=== PATIENT | female | born 1950 | race African-American/Black ===

== ENCOUNTER 2018-12-17 09:49 | Emergency (ER) | payer BC ==
--- NOTE | 2018-12-17 10:53 | ER Document Report ---
ED Medical Screen (RME) - General Chief Complaint: Leg Pain Stated Complaint: LEG PAIN Time Seen by Provider: 12/17/18 10:36 - HPI Notes: 12/17/18 10:51 Patient is a 68-year-old female with a history of hypertension and peripheral vascular disease with stenting in September (on Eliquis and Plavix) who presents complaining of increased pain to her left lower extremity and tingling into her toes that is been present for the past 4 days. Patient has pain with ambulating as well and feels that this is similar to previous issues before she had stents placed. Denies BAJWA, fever, neck pain, URI, CP, SOB, Abd pain, dysuria, back pain, or rash. I have treated and performed a rapid initial assessment of this patient. A comprehensive ED assessment and evaluation of the patient, analysis of test results and completion of medical decision making process will be conducted by additional ED providers. There is high concern for arterial pathology. I noted concern to our charge nurse who got her a bed assignment on the main side. Arterial Dopplers and labs ordered. PHYSICAL EXAMINATION: GENERAL: Well-appearing, well-nourished and in no acute distress. A&Ox4. Answers questions appropriately. LLE: No palpable pulses present. The foot does look duskier compared to right. Cap refill 5 to 6 seconds. RLE: Doppler picked up a 72 pulse rate in the right dorsalis pedis although this was not palpated. Cap refill 4 to 5 seconds. - Related Data Allergies/Adverse Reactions: No Known Allergies Allergy (Verified 12/17/18 09:52) Past Medical History - Social History Chew tobacco use (# tins/day): No Frequency of alcohol use: None Drug Abuse: None - Past Medical History Cardiac Medical History: Reports: Hx Hypertension GI Medical History: Reports: Hx Gastroesophageal Reflux Disease Past Surgical History: Reports: Hx Kidney (Renal Surgery) - Left Renal surgery tumor removal, Hx Vascular Surgery - Stent placement to LLE Physical Exam - Vital signs Vitals: Temp Pulse Resp BP Pulse Ox 98.8 F 86 16 155/90 H 99 12/17/18 09:55 12/17/18 09:55 12/17/18 09:55 12/17/18 09:55 12/17/18 09:55 Course - Vital Signs Vital signs: Temp Pulse Resp BP Pulse Ox 98.8 F 86 16 155/90 H 99 12/17/18 09:55 12/17/18 09:55 12/17/18 09:55 12/17/18 09:55 12/17/18 09:55
--- NOTE | 2018-12-17 11:34 | ER Document Report ---
ED Extremity Problem, Lower - General Chief Complaint: Leg Pain Stated Complaint: LEG PAIN Time Seen by Provider: 12/17/18 10:36 Information source: Patient Notes: HPI: 68-year-old female with past medical history as recorded who had bilateral lower extremity stents placed in [place] in September who presents today with 4 days of some numbness and pain below her left knee including her left lower leg, and dorsal and plantar aspect of the foot. She denies any swelling, obvious discoloration, or change in temperature that she notes. She states it is worse with ambulation. She denies any back pain, fevers, or vomiting. No pain above the knee. ROS: See HPI All other review of systems reviewed and otherwise negative Reviewed vital signs and nursing note as charted by RN. PHYSICAL EXAM: CONSTITUTIONAL: Alert and oriented and responds appropriately to questions. Well-appearing; well-nourished HEAD: Normocephalic; atraumatic NECK: Supple without meningismus; non-tender; no cervical lymphadenopathy, no m asses CARD: Regular rate and rhythm; no murmurs; symmetric distal pulses RESP: Normal chest excursion without splinting or tachypnea; breath sounds clear and equal bilaterally; no wheezes, no rhonchi, no rales ABD/GI: Normal bowel sounds; non-distended; soft, non-tender; no palpable organomegaly or masses BACK: The back appears normal and is non-tender to palpation EXT: Normal ROM in all joints; 5 out of 5 bilateral upper and lower extremity strength with normal patellar reflexes bilaterally. No foot drop noted. Equal temperature to bilateral feet. No pulses palpated to bilateral dorsalis pedis or posterior tibialis regions. 2 to 3-second capillary refill to bilateral toes. Minimal calf tenderness without swelling to the left lower extremity SKIN: No acute lesions noted NEURO: CN 2-12 intact; 5/5 bilateral upper and lower extremity strength with sensation intact to light touch PSYCH: The patient's mood and manner are appropriate. Grooming and personal hygiene are appropriate. - Related Data Allergies/Adverse Reactions: No Known Allergies Allergy (Verified 12/17/18 09:52) Past Medical History - Social History Smoking Status: Never Smoker Chew tobacco use (# tins/day): No Frequency of alcohol use: None Drug Abuse: None Family History: Reviewed & Not Pertinent Patient has suicidal ideation: No Patient has homicidal ideation: No - Past Medical History Cardiac Medical History: Reports: Hx Hypertension GI Medical History: Reports: Hx Gastroesophageal Reflux Disease Past Surgical History: Reports: Hx Kidney (Renal Surgery) - Left Renal surgery tumor removal, Hx Vascular Surgery - Stent placement to LLE Physical Exam - Vital signs Vitals: Temp Pulse Resp BP Pulse Ox 98.8 F 86 16 155/90 H 99 12/17/18 09:55 12/17/18 09:55 12/17/18 09:55 12/17/18 09:55 12/17/18 09:55 Course - Re-evaluation Re-evalutation: 12/17/18 11:33 Given the above history and physical we will order an arterial and venous Doppler of the left lower extremity as well as ankle-brachial index readings. I do believe this is not secondary to compression of the spinal cord or infection. I would like to assess for the possibility of an arteriovenous clot. Patient states she has been taken off Plavix and Eliquis regularly as scheduled. 12/17/18 11:53 With the machine cuff itself patient has ankle-brachial blood pressures both less than 1, left side worse than right side. 12/17/18 13:23 No change in exam. The field operations technician and the vascular surgeon both called me stating that they see almost 0 flow to the left lower extremity. They believe that the stent is in the left iliac artery. Patient is on Plavix and Eliquis. My vascular surgeon has recommended heparin bolus with drip. We will call [facility] for transport/transfer for vascular surgery repair. Our vascular surgeon does not operate any longer. Vascular surgery at [facility] has accepted the patient. He believes that the patient is stable to go by ground. We have relayed this to the transfer team. No change in exam. - Vital Signs Vital signs: Temp Pulse Resp BP Pulse Ox 98.8 F 86 16 155/90 H 99 12/17/18 09:55 12/17/18 09:55 12/17/18 09:55 12/17/18 09:55 12/17/18 09:55 - Laboratory Result Diagrams: 12/17/18 11:17 12/17/18 11:17 Laboratory results interpreted by me: 12/17/18 11:17 AST 84 H Critical Care Note - Critical Care Note Total time excluding time spent on procedures (mins): 55 Discharge - Discharge Clinical Impression: Severe arterial insufficiency of left lower extremity Condition: Fair Disposition: [facility]
[2018-12-17 11:35] LABS: ABSOLUTE EOSINOPHILS # (AUTO) 0.2 10^3/uL (0.0-0.6); ABSOLUTE LYMPHOCYTES (AUTO) 1.5 10^3/uL (0.5-4.7); ABSOLUTE MONOCYTES (AUTO) 0.4 10^3/uL (0.1-1.4); ABSOLUTE NEUT (AUTO) 2.5 10^3/uL (1.7-8.2); BASOPHILS % (AUTO) 0.5 % (0-2); EOSINOPHILS % (AUTO) 4.5 % (0-6); HEMATOCRIT 42.4 % (36.0-47.0); LYMPHOCYTES % (AUTO) 33.7 % (13-45); MEAN CORPUSCULAR HEMOGLOBIN 28.5 pg (27.0-33.4); MEAN CORPUSCULAR HGB CONC 33.1 g/dL (32.0-36.0); MEAN CORPUSCULAR VOLUME 86 fl (80-97); MONOCYTES % (AUTO) 7.7 % (3-13); PLATELET COUNT 188 10^3/uL (150-450); RED BLOOD COUNT 4.92 10^6/uL (3.72-5.28); RED CELL DISTRIBUTION WIDTH 13.9 % (11.5-14.0); SEGMENTED NEUTROPHILS % (AUTO) 53.6 % (42-78); TOTAL CELLS COUNTED % (AUTO) 100 %; WHITE BLOOD COUNT 4.6 10^3/uL (4.0-10.5)
[2018-12-17 11:40] LABS: PROTHROMBIN TIME 15.3 SEC (11.4-15.4)
[2018-12-17 11:54] LABS: ALBUMIN 4.7 g/dL (3.5-5.0); ALKALINE PHOSPHATASE 86 U/L (38-126); ANION GAP 8 (5-19); ASPARTATE AMINO TRANSFERASE 84 U/L (14-36); BILIRUBIN,DIRECT 0.2 mg/dL (0.0-0.4); BILIRUBIN,TOTAL 0.5 mg/dL (0.2-1.3); BLOOD UREA NITROGEN 11 mg/dL (7-20); CALCIUM 9.9 mg/dL (8.4-10.2); CARBON DIOXIDE 30 mmol/L (22-30); CHLORIDE 102 mmol/L (98-107); GLUCOSE 101 mg/dL (75-110); POTASSIUM 3.9 mmol/L (3.6-5.0); TOTAL PROTEIN 7.8 g/dL (6.3-8.2)
[2018-12-17] MEDS ORDERED: HEPARIN SODIUM,PORCINE/D5W 25,000 UNIT/250 ML RTUINJ IV PRN (13:22)
[2018-12-17] MEDS ORDERED: HEPARIN SOD (PORCINE) 1,000 UNIT/ML 10 ML VIAL IV ONE (13:22)
[2018-12-17 16:14] VITALS: BP 189/107
--- NOTE | 2018-12-17 17:00 | VASCULAR PRELIM REPORT ---
Provider Note Provider Note: Left lower arterial study Pertinent for stent in the Common Femoral. Patent. Occluded femoral artery, reversal of flow in the Profunda Femoris. Trickle flow form Femoral down. Consistent with tissue loss, ischemia. Vascular intervention advised. Discussed with Dr Mora at about 1200 hours.
--- NOTE | 2018-12-18 13:25 | XCELERA REPORT ---
[address] [address] Lower Extremity Arterial Evaluation Name: SANTIAGO NASCIMENTO Age: 68 yrs Gender: Female : 1950 Patient Status: Emergency Patient Location: ER Study Date: 12/17/2018 11:54 AM Procedure: A color flow and duplex scan of the lower extremity arteries was performed on the left with velocity and waveform anaylsis. Reason For Study: LLE pain, h/o PVD and stenting, no pulses palp. Ordering Physician: SATURNINO MAYFIELD Performed By: Jose Lee Measurements and Calculations Right Left ENGINEERING DESIGNER PSV 24.8 cm/sec Prox PFA PSV -92.1 cm/sec Prox SFA PSV 11.2 cm/sec Mid SFA PSV -9.0 cm/sec Dist SFA PSV -12.4 cm/sec Prox Pop A PSV 11.0 cm/sec Prox ZENA PSV 14.3 cm/sec Dist ZENA PSV 13.8 cm/sec Prox RETORT FEEDER GROUND BONE PSV 3.3 cm/sec Mid RETORT FEEDER GROUND BONE PSV 4.7 cm/sec Prox Mignon A 18.4 cm/sec PSV Percy Pedis PSV 8.3 cm/sec Left Side Arterial Evaluation Very low velocity and Monophasic waveforms, spectral broadening, noted from the Common Femoral artery to the infrageniculate vessels . Worse progressing distally with trickle flow at foot. Very low velocity and Monophasic waveforms, spectral broadening, , retrograde flow noted in the Deep Femoral artery. Critical Findings Discussed with Dr Mora. Interpretation Summary Severe hemodynamically significant lesions in the left lower extremity only, on duplex imaging, at rest. Truly poor flow in the left lower extremity. Significant risk of tissue loss, Recommend consider intervention. : SATURNINO MAYFIELD > Robert Mac
== END 2018-12-17 16:10 | disposition short-term general hospital (02) ==
LOC: ER 09:49
DX: I70.202 Unspecified atherosclerosis of native arteries of extremities, left leg (principal); Z95.828 Presence of other vascular implants and grafts; R20.0 Anesthesia of skin; M79.662 Pain in left lower leg; M79.672 Pain in left foot; I10 Essential (primary) hypertension
CPT/HCPCS: 36415; 85025; 85610; 85730; 80053; 93926 ×2; J1644 ×2; 96365; 96366; 99285